=== PATIENT | male | born 1970 | race Caucasian/White ===

== ENCOUNTER 2016-11-10 06:07 | Emergency (ER) | payer SELFPAY ==
[2016-11-10] MEDS ORDERED: Lactated Ringers 1,000 ML IV ONE (06:28)
[2016-11-10] MEDS ORDERED: HYDROmorphone 2 MG/ML SDV IVPUSH ONE (06:29)
--- NOTE | 2016-11-10 06:36 | EDM.PDOC ---
ED HPI GENERAL MEDICAL PROBLEM - General Chief Complaint: Gastrointestinal Problem Stated Complaint: abdominal pain that awoke him from sleep this morning Time Seen by Provider: 11/10/16 06:25 Source of Information: Reports: Patient History Limitations: Reports: No Limitations - History of Present Illness INITIAL COMMENTS - FREE TEXT/NARRATIVE: 46 yo 1 ppd smoker presents with diffuse abdominal pain that awoke him from sleep early this morning. Not associated with vomiting or diarrhea. Pain is constant and does not move around. No hx of the same. Had a BM this morning that did not give him relief. Has HTN and is on Lisinopril 40 mg qd for this, but has not taken it yet today. Here with his . Onset: Today Onset Date: 11/10/16 Onset Time: 03:40 Duration: Hour(s):, Constant Location: Reports: Abdomen Quality: Reports: Ache Severity: Severe Improves with: Reports: None Worsens with: Reports: Movement Context: Reports: Other (unknown) Associated Symptoms: Reports: Loss of Appetite. Denies: Fever/Chills, Nausea/ Vomiting Treatments ORANGE PICKER: Reports: Other (see below) (none) Bilateral Lower Back Pain Score (Numeric/FACES): 8 - Related Data Allergies Allergy/AdvReac Type Severity Reaction Status Date / Time No Known Allergies Allergy Verified 11/10/16 06:41 Home Meds: Home Meds Albuterol [Ventolin HFA] 8 gm IH Q4HR PRN 11/10/16 [History] Dicyclomine [Bentyl] 20 mg PO QIDACANDBED #20 tablet 11/10/16 [Rx] Lisinopril/Hydrochlorothiazide [Lisinopril-Hctz 10-12.5 mg Tab] 1 each PO DAILY 11/10/16 [History] ED ROS GENERAL - Review of Systems Review Of Systems: See Below Constitutional: Denies: Decreased Appetite HEENT: Reports: No Symptoms Respiratory: Reports: No Symptoms Cardiovascular: Reports: No Symptoms Endocrine: Reports: No Symptoms GI/Abdominal: Reports: Abdominal Pain, Decreased Appetite. Denies: Black Stool , Bloody Stool, Constipation, Diarrhea, Distension, Hematemesis, Hematochezia, Nausea, Stool Incontinence, Vomiting : Reports: No Symptoms Musculoskeletal: Reports: No Symptoms Skin: Reports: No Symptoms Neurological: Reports: No Symptoms Psychiatric: Reports: No Symptoms ED EXAM, GI/ABD - Physical Exam Exam: See Below Exam Limited By: No Limitations General Appearance: Alert, WD/WN, Mild Distress Eyes: Bilateral: Normal Appearance Ears: Normal External Exam, Normal Canal, Hearing Grossly Normal Nose: Normal Inspection, Normal Mucosa, No Blood Throat/Mouth: Normal Inspection, Normal Lips, Normal Teeth, Normal Oropharynx, Normal Voice, No Airway Compromise Head: Atraumatic, Normocephalic Neck: Normal Inspection, Supple, Non-Tender Respiratory/Chest: No Respiratory Distress, Lungs Clear, Normal Breath Sounds, No Accessory Muscle Use Cardiovascular: Regular Rate, Rhythm, No Edema GI/Abdominal: Soft, No Distention, Hyperactive Bowel Sounds, Tenderness ( diffusely). No: Guarding, Rebound, Hepatomegaly, Splenomegaly, Hernia Back Exam: Normal Inspection Extremities: Normal Inspection, Normal Range of Motion, Non-Tender, No Pedal Edema Neurological: Alert, Oriented, CN II-XII Intact, Normal Cognition, No Motor/ Sensory Deficits Psychiatric: Normal Affect, Normal Mood Skin Exam: Warm, Dry, Intact, Normal Color, No Rash Lymphatic: No Adenopathy Course - Vital Signs Text/Narrative:: LR 1000 ml IV, Dilaudid 1 mg IV, lisinopril 40 mg po, Toradol 30 mg IV-improved Last Recorded V/S: Last Vital Signs Temp 36.7 C 11/10/16 06:10 Pulse 86 11/10/16 07:05 Resp 20 11/10/16 06:10 BP 156/98 H 11/10/16 07:05 Pulse Ox 99 11/10/16 06:10 - Orders/Labs/Meds Labs: Laboratory Tests 11/10/16 11/10/16 11/10/16 Range/Units 06:50 06:50 06:50 WBC 8.9 (4.5-12.0) X10-3/uL RBC 4.65 (4.30-5.75) x10(6)uL Hgb 14.5 (11.5-15.5) g/dL Hct 42.1 (30.0-51.3) % MCV 90.6 (80-96) fL MCH 31.2 (27.7-33.6) pg MCHC 34.5 (32.2-35.4) g/dL RDW 13.4 (11.5-15.5) % Plt Count 209 (125-369) X10(3)uL Sodium 137 (135-145) mmol/L Potassium 3.9 (3.5-5.3) mmol/L Chloride 107 (100-110) mmol/L Carbon Dioxide 23 (23-29) mmol/L BUN 16 (5-20) mg/dL Creatinine 0.7 (0.6-1.3) mg/dL Est Cr Clr Drug Dosing 151.68 mL/min Estimated GFR (MDRD) > 60 (>60) BUN/Creatinine Ratio 22.9 H (9-20) Glucose 110 (80-116) mg/dL Calcium 8.6 (8.6-10.2) mg/dL Total Bilirubin 0.4 (0.1-1.3) mg/dL AST 23 (5-27) IU/L ALT 18 (14-26) IU/L Alkaline Phosphatase 84 (56-112) IU/L C-Reactive Protein 1.2 H (0.0-1.0) mg/dL Total Protein 6.9 (6.0-8.0) g/dL Albumin 3.9 (3.5-5.2) g/dL Globulin 3.0 g/dL Albumin/Globulin Ratio 1.3 Amylase 42 (28-100) U/L Urine Color (YELLOW) Urine Appearance (CLEAR) Urine pH (5.0-6.5) Ur Specific [place] (1.010-1.025) Urine Protein (NEGATIVE) mg/dL Urine Glucose (UA) (NEGATIVE) mg/dL Urine Ketones (NEGATIVE) mg/dL Urine Occult Blood (NEGATIVE) Urine Nitrite (NEGATIVE) Urine Bilirubin (NEGATIVE) Urine Urobilinogen (NEGATIVE) mg/dL Ur Leukocyte Esterase (NEGATIVE) Urine RBC (0) Urine WBC (0) Ur Squamous Epith Cells (NS,R,O) Urine Bacteria (NS) 11/10/16 Range/Units 07:35 WBC (4.5-12.0) X10-3/uL RBC (4.30-5.75) x10(6)uL Hgb (11.5-15.5) g/dL Hct (30.0-51.3) % MCV (80-96) fL MCH (27.7-33.6) pg MCHC (32.2-35.4) g/dL RDW (11.5-15.5) % Plt Count (125-369) X10(3)uL Sodium (135-145) mmol/L Potassium (3.5-5.3) mmol/L Chloride (100-110) mmol/L Carbon Dioxide (23-29) mmol/L BUN (5-20) mg/dL Creatinine (0.6-1.3) mg/dL Est Cr Clr Drug Dosing mL/min Estimated GFR (MDRD) (>60) BUN/Creatinine Ratio (9-20) Glucose (80-116) mg/dL Calcium (8.6-10.2) mg/dL Total Bilirubin (0.1-1.3) mg/dL AST (5-27) IU/L ALT (14-26) IU/L Alkaline Phosphatase (56-112) IU/L C-Reactive Protein (0.0-1.0) mg/dL Total Protein (6.0-8.0) g/dL Albumin (3.5-5.2) g/dL Globulin g/dL Albumin/Globulin Ratio Amylase (28-100) U/L Urine Color Yellow (YELLOW) Urine Appearance Clear (CLEAR) Urine pH 6.0 (5.0-6.5) Ur Specific [place] 1.010 (1.010-1.025) Urine Protein Negative (NEGATIVE) mg/dL Urine Glucose (UA) Normal (NEGATIVE) mg/dL Urine Ketones Negative (NEGATIVE) mg/dL Urine Occult Blood Moderate H (NEGATIVE) Urine Nitrite Negative (NEGATIVE) Urine Bilirubin Negative (NEGATIVE) Urine Urobilinogen Normal (NEGATIVE) mg/dL Ur Leukocyte Esterase Negative (NEGATIVE) Urine RBC 0-5 (0) Urine WBC 0-5 (0) Ur Squamous Epith Cells Rare (NS,R,O) Urine Bacteria Not seen (NS) Meds: Medications Discontinued Medications Generic Name Dose Route Start Last Admin Trade Name Freq PRN Reason Stop Dose Admin Hydromorphone HCl 1 mg 11/10/16 06:29 11/10/16 06:42 Dilaudid IVPUSH 11/10/16 06:30 1 mg ONETIME ONE Administration Lactated Ringer's 1,000 mls @ 1,000 mls/hr 11/10/16 06:28 11/10/16 06:42 Ringers, Lactated IV 11/10/16 07:27 1,000 mls/hr BOLUS ONE Administration Ketorolac Tromethamine 30 mg 11/10/16 07:14 11/10/16 07:23 Toradol IVPUSH 11/10/16 07:15 30 mg ONETIME ONE Administration Lisinopril 40 mg 11/10/16 06:40 11/10/16 07:04 Prinivil PO 11/10/16 06:41 40 mg NOW STA Administration Lisinopril Confirm 11/10/16 06:55 11/10/16 07:04 Prinivil Administered 11/10/16 06:56 Not Given Dose 40 mg .ROUTE .STK-MED ONE Lisinopril 40 mg 11/10/16 07:01 11/10/16 07:17 Prinivil PO 11/10/16 07:02 Not Given ONETIME ONE Departure - Departure Time of Disposition: 08:00 Disposition: Home, Self-Care 01 Condition: fair Clinical Impression: Intestinal cramps - Discharge Information Prescriptions: Dicyclomine [Bentyl] 20 mg PO QIDACANDBED #20 tablet Referrals: Jhony Chowdary MD [Primary Care Provider] - Forms: ED Department Discharge Additional Instructions: Clear liquid diet. Dicyclomine as directed for abdominal pain. Acetaminophen 1000 mg every 6 hrs for added relief. Rest. Recheck as needed.
[2016-11-10] MEDS ORDERED: Lisinopril 20 MG Tab ONE (06:55)
[2016-11-10] MEDS ORDERED: Lisinopril 20 MG Tab PO ONE (07:01)
[2016-11-10] MEDS ORDERED: Ketorolac 30 MG/ML SDV IVPUSH ONE (07:14)
[2016-11-10 08:29] VITALS: BP 158/79
== END 2016-11-10 08:25 | disposition home or self-care (01) ==
LOC: FB.ED 06:07
DX: R10.9 Unspecified abdominal pain (principal); Z79.899 Other long term (current) drug therapy
CPT/HCPCS: 36415; 80053; 81001; 82150; 85027; 86140; 96361; 96374; 96375; 99284; A9270; J1170; J1885; J7120